=== PATIENT | female | born 1990 | race Caucasian/White ===

== ENCOUNTER 2020-02-12 13:18 | Outpatient (REF) | payer BC, SELFPAY ==
[2020-02-18 11:02] LABS: SARS-CoV-2 RNA Undetected (Undetected); SARS-CoV-2 Specimen Source Nasopharynx
== END 2020-02-12 13:38 ==
LOC: NCHCN 13:18
PROVIDERS: Visit Provider Nurse Practitioner Family
DX: J06.9 Acute upper respiratory infection, unspecified (principal)
CPT/HCPCS: U0003

== ENCOUNTER 2020-12-31 03:56 | Outpatient (CLI) | payer BC, SELFPAY ==
[2020-12-31 16:32] LABS: HCT 40.1 % (36.0-46.0); HGB 13.5 g/dL (11.2-15.7); MCH 30.5 pg (27.0-33.0); MCHC 33.7 % (32.0-36.0); MCV 90.7 fL (80-95); MPV 10.6 fL (8.0-11.0); Platelet Count 251 10^3/uL (130-400); RBC 4.42 10^6/uL (3.93-5.22); RDW 11.5 % (11.7-14.6); RDW-SD 38.5 fL; WBC 7.14 10^3/uL (4.4-10.8)
[2020-12-31 17:39] LABS: ALT 21 U/L (14-59); AST 11 U/L (15-37); Albumin 3.9 g/dL (3.4-5.0); Alkaline Phosphatase 67 U/L (46-116); Anion Gap 8.3 mmol/L (3-11); BUN 13 mg/dL (7-18); Bilirubin, Total 0.2 mg/dL (0.2-1.0); CO2 27.7 mmol/L (21.0-32.0); CREATININE 0.8 mg/dL (0.55-1.02); Calcium 8.9 mg/dL (8.5-10.1); Calculated LDL 145 mg/dL (<100); Chloride 104 mmol/L (98-107); Cholesterol 215 mg/dL (<200); Glucose 78 mg/dL (74-106); HDL Cholesterol 56 mg/dL (40-60); Sodium 140 mmol/L (136-145); TSH (W/Ref FT4) 3.14 uIU/mL (0.36-3.74); Total Protein 7.1 g/dL (6.4-8.2); Triglyceride 70 mg/dL (<150)
== END 2020-12-31 03:57 | disposition home or self-care (01) ==
LOC: LBO 03:56
PROVIDERS: PCP Student in an Organized Health Care Education/Training Program; Visit Provider Student in an Organized Health Care Education/Training Program
DX: K90.0 Celiac disease (principal); E46 Unspecified protein-calorie malnutrition; Z13.220 Encounter for screening for lipoid disorders; R53.83 Other fatigue; Z83.49 Family history of other endocrine, nutritional and metabolic diseases
CPT/HCPCS: 36415; 80053; 80061; 85027; 84443

== ENCOUNTER 2021-11-07 00:07 | Outpatient (CLI) | payer BC, SELFPAY ==
--- NOTE | 2021-11-07 07:15 | DI.RAD_ITS ---
Exam(s) XR CERVICAL SP COMP W FLEX/EXT EXAM: XR CERVICAL SP COMP W FLEX/EXT CLINICAL HISTORY: evaluate joint Space, vert pathology,NECK AND SHOULDER PAIN,M54.2,M25.519. TECHNIQUE: 2D digital imaging was performed. Eight images were obtained. AP, odontoid, lateral, flex ion, extension and bilateral oblique images were obtained. COMPARISON: No exams were available for comparison FINDINGS: The odontoid is intact. The lateral masses are well aligned. There is normal alignment of the cervi emily spine. The vertebral bodies, disc spaces and posterior elements are well maintained. No acute f racture or subluxation is present. No significant neural foraminal stenosis is present. No significa nt subluxation with flexion or extension. The cervical thoracic junction is well maintained. The pr evertebral soft tissues are unremarkable. Lung apices are clear. IMPRESSION: Unremarkable radiographs of the cervical spine. DATA REPOSITORY: RADIATION DOSE DELIVERED:
== END 2021-11-07 00:27 ==
LOC: DI 00:07
PROVIDERS: PCP Student in an Organized Health Care Education/Training Program; Visit Provider Student in an Organized Health Care Education/Training Program
DX: M54.2 Cervicalgia (principal); M25.511 Pain in right shoulder; M79.601 Pain in right arm
CPT/HCPCS: 72052

== ENCOUNTER 2021-12-26 01:14 | Outpatient (CLI) | payer BC, SELFPAY ==
[2021-12-26 12:45] LABS: Anion Gap 9.8 mmol/L (3-11); BUN 13 mg/dL (7-18); CO2 26.2 mmol/L (21.0-32.0); CREATININE 0.8 mg/dL (0.55-1.02); Calcium 8.5 mg/dL (8.5-10.1); Calculated LDL 134 mg/dL (<100); Chloride 103 mmol/L (98-107); Cholesterol 210 mg/dL (<200); Glucose 82 mg/dL (74-106); HDL Cholesterol 61 mg/dL (40-60); Potassium 4.5 mmol/L (3.5-5.1); Sodium 139 mmol/L (136-145); Triglyceride 76 mg/dL (<150)
== END 2021-12-26 01:15 | disposition home or self-care (01) ==
LOC: LBO 01:14
PROVIDERS: PCP Student in an Organized Health Care Education/Training Program; Visit Provider Student in an Organized Health Care Education/Training Program
DX: E03.9 Hypothyroidism, unspecified (principal); K90.0 Celiac disease; Z79.1 Long term (current) use of non-steroidal anti-inflammatories (NSAID); Z13.220 Encounter for screening for lipoid disorders
CPT/HCPCS: 36415; 80048; 80061; 84443

== ENCOUNTER 2024-07-28 01:16 | Outpatient (CLI) | payer BC, SELFPAY ==
[2024-07-28 08:21] LABS: HCT 40.9 % (36.0-46.0); HGB 14.1 g/dL (11.2-15.7); MCH 30.9 pg (27.0-33.0); MCHC 34.5 % (32.0-36.0); MCV 90 fL (80-95); MPV 10.2 fL (8.0-11.0); Platelet Count 279 10^3/uL (130-400); RBC 4.57 10^6/uL (3.93-5.22); RDW 11.8 % (11.7-14.6); RDW-SD 38.2 fL; WBC 5.84 10^3/uL (4.4-10.8)
[2024-07-28 08:51] LABS: Anion Gap 7.1 mmol/L (3-11); BUN 13 mg/dL (7-18); CO2 26.9 mmol/L (21.0-32.0); CREATININE 0.8 mg/dL (0.55-1.02); Calculated LDL 162 mg/dL (<100); Chloride 106 mmol/L (98-107); Cholesterol 235 mg/dL (<200); Estimated GFR 99.71 (mL/min/1.73m2); Glucose 88 mg/dL (74-106); HDL Cholesterol 54 mg/dL (40-60); Potassium 4.6 mmol/L (3.5-5.1); Sodium 140 mmol/L (136-145); TSH (W/Ref FT4) 1.82 uIU/mL (0.36-3.74); Triglyceride 95 mg/dL (<150); Vitamin D 25 Total 33.3 ng/mL (30-100)
[2024-07-28 09:24] LABS: Iron 94 ug/dL (50-170); Total Iron Binding Capacity 299 ug/dL (250-450); Transferrin Sat 31 % (15-50)
== END 2024-07-28 01:17 | disposition home or self-care (01) ==
LOC: LBO 01:17
PROVIDERS: PCP Student in an Organized Health Care Education/Training Program; Referring Provider Student in an Organized Health Care Education/Training Program; Visit Provider Student in an Organized Health Care Education/Training Program
DX: Z13.220 Encounter for screening for lipoid disorders (principal); F41.9 Anxiety disorder, unspecified; F32.9 Major depressive disorder, single episode, unspecified; E03.9 Hypothyroidism, unspecified; K90.0 Celiac disease; Z91.89 Other specified personal risk factors, not elsewhere classified; Z79.899 Other long term (current) drug therapy; E86.0 Dehydration; R53.82 Chronic fatigue, unspecified; N92.0 Excessive and frequent menstruation with regular cycle; L56.8 Other specified acute skin changes due to ultraviolet radiation; E61.1 Iron deficiency; K58.9 Irritable bowel syndrome, unspecified; K90.9 Intestinal malabsorption, unspecified; I10 Essential (primary) hypertension
CPT/HCPCS: 36415; 80048; 80061; 82306; 85027; 83540; 83550; 84443

== ENCOUNTER 2024-07-31 17:36 | Outpatient (REF) | payer BC, SELFPAY ==
--- NOTE | 2024-07-31 15:45 | PAPFT_PTH ---
PATIENT: Keila Vyas LOC: [facility] U#:[id number] AGE/SX: 34/F ROOM: RE07/31/[address]: Pao Erwin NP : 1990 BED: DIS: 07/31/2024 SPEC #: [id number] RECD: 07/31/24 18:01 STATUS: ISABELLE REAshely #: [id number] CHAPARRITA: 07/31/24 15:[address]: Pao Erwin NP DEPT: [facility] Cytology RECD BY: Summer Hoskins ENTERED: 07/31/24 18:01 SP TYPE: PAPFT OTHR DR: Adia Rodgers, DO Tissues: 1 - CX/ENDOCX FOR PAP SMEARS Procedures: PAP THIN PREP/[facility] Screening HPV DNA PROBE Comments: [id number] (HPV 16 & 18/45)
== END 2024-07-31 17:37 | disposition home or self-care (01) ==
LOC: LBN 17:36
PROVIDERS: PCP Student in an Organized Health Care Education/Training Program; Visit Provider Nurse Practitioner Women's Health
DX: Z01.419 Encounter for gynecological examination (general) (routine) without abnormal findings (principal); Z12.4 Encounter for screening for malignant neoplasm of cervix; N77.1 Vaginitis, vulvitis and vulvovaginitis in diseases classified elsewhere
CPT/HCPCS: 88142; 87624